=== PATIENT | male | born 1995 | race Caucasian/White ===

== ENCOUNTER 2018-01-18 18:04 | Emergency (ER) | payer OTHER ==
[2018-01-18 18:11] VITALS: BP 138/79; PULSE 68; RESP 19; TEMP 97.5; O2SAT 98
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
== END 2018-01-18 19:57 | disposition home or self-care (01) ==
LOC: H.ER 18:04
DX: M25.511 Pain in right shoulder (principal); V03.00XA Pedestrian on foot injured in collision with car, pick-up truck or van in nontraffic accident, initial encounter; Y92.410 Unspecified street and highway as the place of occurrence of the external cause